=== PATIENT | male | born 1985 | race Two or more races ===

== ENCOUNTER 2016-08-15 08:58 | Emergency (ER) | payer SELFPAY ==
[~2016-08-15] VITALS: Ht 182.9 cm; Wt 83.9 kg
== END 2016-08-15 09:37 | disposition home or self-care (01) ==
LOC: ER 09:00
DX: S92.352A Displaced fracture of fifth metatarsal bone, left foot, initial encounter for closed fracture (principal); X58.XXXA Exposure to other specified factors, initial encounter; Y93.89 Activity, other specified; Y92.89 Other specified places as the place of occurrence of the external cause; Y99.8 Other external cause status
CPT/HCPCS: 73630; 99284; A4606; Z7610

== ENCOUNTER 2016-08-21 18:21 | Emergency (ER) | payer OTHER ==
[~2016-08-21] VITALS: Ht 182.9 cm; Wt 83.9 kg
[2016-08-21 18:40] VITALS: BP 129/76
[2016-08-21] MEDS ORDERED: IBUPROFEN 600 MG TABLET PO ONE ×2 (19:24→19:30)
[2016-08-21] MEDS ORDERED: CEPHALEXIN MONOHYDRATE 500 MG CAPSULE PO ONE ×2 (19:24→19:30)
== END 2016-08-21 19:32 | disposition home or self-care (01) ==
LOC: ER 18:32
DX: L03.116 Cellulitis of left lower limb (principal)
CPT/HCPCS: 99283; A4606; Z7610